=== PATIENT | male | born 1960 | race Caucasian/White ===

== ENCOUNTER 2017-01-10 11:49 | Emergency (ER) | payer MEDICAID, OTHER ==
[~2017-01-10] VITALS: Ht 180.3 cm; Wt 80.9 kg
[2017-01-10 11:53] VITALS: BP 156/110; PULSE 113; RESP 16; O2SAT 99
--- NOTE | 2017-01-10 12:31 | ED.REPORT ---
HPI-General Illness Date of Service Jan 10, 2017 ED Provider: Nicho Puente DO Patient is a 56 year old male with a hx of DM, CAD, and HTN who presents to the ED with multiple medical complaints. he complains of dizzy spells and SOB upon standing, tightness in his R calf that radiates to his groin, a new lump in his right groin (which was the site of a heart cath 6 years ago), numbness in his fingers and toes, his toenails falling off, homelessness, and noncompliance with his diabetes and heart medications. He denies fevers, vomiting, chest pain, or any other symptoms. Nursing Notes Stated Complaint: HEART STENT IN GROIN/PAIN Chief Complaint: General Complaint Nursing Notes Reviewed: Yes Allergies: Coded Allergies: No Known Allergies (Unverified , 01/10/17) General Time Seen by MD: 12:30 Chief Complaint Multip medical complaints Hx Obtained From: Patient Arrived By: Walk-in Onset Occurred: Onset unknown Past Medical History Past Medical History Reports: Coronary artery disease, Diabetes mellitus, Hypertension Past Surgical History CABGx5 groin stents Social History Other Social History: Homeless Ambulatory Status Independent Review of Systems +toenails falling off Full Review of Systems Constitutional: Denies: Fever Respiratory: Reports: Shortness of breath Cardiovascular: Denies: Chest pain GI: Denies: Vomiting Musculoskeletal: Reports: Extremity pain Neurologic: Reports: Dizziness, Numbness Complete sys rev & neg: except as marked. Physical Exam Vital Signs Vital Signs Date Time Temp Pulse Resp B/P Pulse Ox O2 Delivery O2 Flow Rate FiO2 01/10/17 14:20 97 15 168/109 97 Room Air 01/10/17 11:53 36.9 113 16 156/110 99 Room Air Initial VS: Reviewed, Vital signs abnormal Head / Eyes: Atraumatic, Normocephalic Neck: Full range of motion Respiratory: Breath sounds normal, Clear to auscultation, No respiratory distress Skin: Warm, Dry Neurologic: Alert, Oriented, Nonfocal Psychiatric: Mood/affect normal, Behavior normal, Normal thought content General/Constitutional: Awake, Alert Abdomen: Atraumatic, Soft, No hernia Ankle / Foot: Neurologic intact, Vascular intact Swollen, erythematous R great toe with cellulitis tracking proximally up R foot. Interpretation & Diagnostics Lab Results Interpretation Result Diagram: 01/10/17 1250 01/10/17 1250 Test 01/10/17 12:50 01/10/17 14:05 White Blood Count 15.2th/mm3 (3.8-10.1) Red Blood Count 5.04mil/mm3 (4.40-5.80) Hemoglobin 15.8g/dL (13.8-17.2) Hematocrit 45.5% (41.0-50.0) Mean Corpuscular Volume 90.3fL (81-100) Mean Corpuscular Hemoglobin 31.3pg (27.0-35.0) Mean Corpuscular Hemoglobin Concent 34.7% (32.0-37.0) Red Cell Distribution Width 12.6% (12.3-15.4) Platelet Count 152bil/L (150-400) Neutrophils (%) (Auto) 82.5% (40-74) Lymphocytes (%) (Auto) 8.4% (14-46) Monocytes (%) (Auto) 8.5% (4-12) Eosinophils (%) (Auto) 0.1% (0-5) Basophils (%) (Auto) 0.3% (0-3) Erythrocyte Sedimentation Rate 12mm/hr (0-30) Prothrombin Time 11.7sec (8.1-12.5) Prothromb Time International Ratio 1.09ratio D-Dimer < 0.50mg/L FEU (<0.50) Sodium Level 132mEq/L (134-144) Potassium Level 4.1mEq/L (3.5-5.2) Chloride Level 91mEq/L (97-108) Carbon Dioxide Level 23mmol/L (18-29) Blood Urea Nitrogen 11mg/dL (6-24) Creatinine 0.82mg/dL (0.76-1.27) Estimat Glomerular Filtration Rate 104mL/min (>59) Glucose Level 292mg/dL (60-99) Lactic Acid Level 2.0mmol/L (0.4-2.0) Calcium Level 9.3mg/dL (8.5-10.1) Magnesium Level 1.9mg/dL (1.6-2.6) Total Bilirubin 1.3mg/dL (0.0-1.2) Aspartate Amino Transf (AST/SGOT) 23U/L (0-50) Alanine Aminotransferase (ALT/SGPT) 34U/L (0-44) Alkaline Phosphatase 91U/L (25-150) Troponin T < 0.010ug/L (0.0-0.011) C-Reactive Protein 14.8mg/dL (0.0-0.5) Total Protein 8.1g/dL (6.4-8.4) Albumin 3.7g/dL (3.4-5.0) Urine Color Yellow (YELLOW) Urine Appearance Clear (CLEAR,HAZY) Urine pH 6.5 (5.0-8.0) Urine Specific [place] 1.015 (1.003-1.035) Urine Protein Negativemg/dL (NEG,TRACE) Urine Glucose (UA) 1000mg/dL (NEGATIVE) Urine Ketones 40mg/dL (NEGATIVE) Urine Occult Blood Trace (NEGATIVE) Urine Nitrite Negative (NEGATIVE) Urine Bilirubin Negative (NEGATIVE) Urine Urobilinogen 8.0mg/dL (NORMAL) Urine Leukocyte Esterase Negative (NEGATIVE) Urine RBC 3-10/hpf (0-2) Urine WBC 0-5/hpf (0-5) Urine Epithelial Cells Occasional/hpf (NONE-MOD) Urine Crystals None seen (NONE SEEN) Urine Bacteria None/hpf (NONE-FEW) Urine Hyaline Casts None/lpf (NONE) Urine Granular Casts None seen (NONE SEEN) Urine Waxy Casts None seen (NONE SEEN) Urine Red Blood Cell Casts None seen (NONE SEEN) Urine White Blood Cell Casts None seen (NONE SEEN) Urine Mucus None seen (None Seen) Urine Trichomonas None seen (NONE SEEN) Urine Yeast None (NONE SEEN) Urinalysis Comment None Urine Culture Reflexed Not indicated ECG Interpretation ECG Interpretation: Sinus rate 99 No ischemia Time: 13:17 Interpreted by: ED physician X-Ray Chest Interpretation Chest Xray Interpretation: IMPRESSION: No acute disease. Dictated by: Jb Mcguire M.D. on 01/10/2017 at 12:57 Approved by: Jb Mcguire M.D. on 01/10/2017 at 12:58 View: Portable, 1 view Interpretation / Wet Read by: Interpret - Radiologist X-Ray Interpretation Xray Interpretation: IMPRESSION: Plantar calcaneal spur. Forefoot joint degeneration as above No focal osseous destruction to suggest advanced osteomyelitis. Dictated by: Jb Mcguire M.D. on 01/10/2017 at 14:26 Approved by: Jb Mcguire M.D. on 01/10/2017 at 14:31 X-Ray Ordered: Foot right Interpretation / Wet Read by: Interpret - Radiologist Re-Eval/Medical Decision Med Decision/Clinical Course Sepsis due to a diabetic foot wound and cellulitis, additionally noncompliance and homelessness. This patient should be admitted for stabilization with IV antibiotics. Consultation : Call Returned at: 15:50 Note: Shailesh Cardenas, at [facility], accepts transfer Discharge & Departure Primary Impression: Non compliance with medical treatment Additional Impressions: Diabetic foot infection Sepsis Sepsis type: sepsis due to unspecified organism Qualified Code: A41.9 - Sepsis, unspecified organism Disposition: Transfer, Acute Care Facility ([facility]) Transfer Accepted at: 15:50 Spoke with: Attending physician, Hospitalist Patient Status: Stable Patient Informed: Yes Referrals: Chema Mckeon MD (Family) Nessa Attestation Portions of this note were transcribed by Zeeshan Lopez. I, Dr. Puente personally performed the history, physical exam and medical decision-making; I reviewed and confirmed the accuracy of the information in the transcribed note. Signed by: Nessa Harry, 01/10/17 copies to: Chema Mckeon MD, Timothy S DO Jan 10, 2017 12:31 ZEESHAN LOPEZ Jan 10, 2017 12:39
--- NOTE | 2017-01-10 12:59 | DRSVH ---
PROCEDURE: X-RAY CHEST ONE VIEW, PORTABLE ([id number]) INDICATIONS: shortness of breath TECHNIQUE: One view of the chest was acquired. COMPARISON: None. FINDINGS: Surgical changes and devices: Sternotomy wires and CABG clips. Lungs and pleura: No pleural effusions or pneumothorax. Lungs are clear. Mediastinum: Mediastinal contours appear normal. Heart size is normal. Bones and chest wall: No suspicious bony lesions. Overlying soft tissues appear unremarkable. IMPRESSION: No acute disease. Dictated by: Jb Mcguire M.D. on 01/10/2017 at 12:57 Approved by: Jb Mcguire M.D. on 01/10/2017 at 12:58
[2017-01-10 13:05] LABS: BASOPHILS % (AUTO) 0.3 % (0-3); EOSINOPHILS % (AUTO) 0.1 % (0-5); MONOCYTES % (AUTO) 8.5 % (4-12); Mean Corpuscular Hemoglobin 31.3 pg (27.0-35.0); Mean Corpuscular Volume 90.3 fL (81-100); NEUTROPHILS % (AUTO) 82.5 % (40-74); Platelet Count 152 bil/L (150-400)
[2017-01-10] MEDS ORDERED: 0.9% Sodium Chloride 1,000 ML IV ONE (13:08)
[2017-01-10 13:17] LABS: INR 1.09 ratio
[2017-01-10 13:38] LABS: TROPONIN T < 0.010 ug/L (0.0-0.011)
[2017-01-10] MEDS ORDERED: Piperacillin-Tazo 3.375 Gm Inj 3.375 GM in Dextrose 5% Minibag Plus 50 ML IV ONE (13:40)
[2017-01-10] MEDS ORDERED: Vancomycin Dose per Pharmacist XX ONE (13:47)
[2017-01-10] MEDS ORDERED: Vancomycin Inj 1,500 MG in 0.9% Sodium Chloride 500 ML IV ONE (13:50)
[2017-01-10 14:20] VITALS: BP 168/109; PULSE 97; RESP 15; O2SAT 97
[2017-01-10 14:33] LABS: APPEARANCE,URINE CLEAR (CLEAR,HAZY); COLOR,URINE YELLOW (YELLOW); OCCULT BLOOD,URINE TRACE (NEGATIVE); PH,URINE 6.5 (5.0-8.0)
--- NOTE | 2017-01-10 14:33 | DRSVH ---
PROCEDURE: X-RAY RIGHT FOOT COMPLETE, MINIMUM THREE VIEWS ([id number]) INDICATIONS: 1st toe infection TECHNIQUE: 3 views of the foot were acquired. COMPARISON: None. FINDINGS: Bones: No fractures or dislocations. No suspicious bony lesions. Plantar calcaneal spurring. There is diffuse interphalangeal and first MTP joint degeneration. No focal osseous destruction is seen. Soft tissues: No tibiotalar joint effusion. Achilles tendon appears normal. IMPRESSION: Plantar calcaneal spur. Forefoot joint degeneration as above No focal osseous destruction to suggest advanced osteomyelitis. Dictated by: Jb Mcguire M.D. on 01/10/2017 at 14:26 Approved by: Jb Mcguire M.D. on 01/10/2017 at 14:31
[2017-01-10 16:44] VITALS: BP 171/108; PULSE 95; RESP 13; O2SAT 98
[2017-01-10] MEDS ORDERED: Insulin Human REGular-Omnicell 100 Unit/mL SUBQ ONE (16:50)
[2017-01-10] MEDS ORDERED: 0.9% Sodium Chloride 1,000 ML IV SCH (16:50)
== END 2017-01-10 18:00 | disposition short-term general hospital (02) ==
LOC: SED 11:49
DX: Z91.14 Patient's other noncompliance with medication regimen (principal); E11.628 Type 2 diabetes mellitus with other skin complications; A41.9 Sepsis, unspecified organism; I25.10 Atherosclerotic heart disease of native coronary artery without angina pectoris; I10 Essential (primary) hypertension; Z59.0 Homelessness; Z95.1 Presence of aortocoronary bypass graft
CPT/HCPCS: 36415; 71010; 73630; 80053; 81000; 82948; 83605; 83735; 84484; 85025; 85378; 85610; 85651; 86140; 87040; 87077; 93005; 96361; 96365; 96366; 96367; 96372; 99285; J1815; J2543; J3370; J7030; J7040

== ENCOUNTER 2017-03-08 16:49 | Emergency (ER) | payer OTHER ==
[~2017-03-08] VITALS: Ht 177.8 cm; Wt 81.8 kg
[2017-03-08 16:55] VITALS: BP 135/90; PULSE 104; RESP 16; O2SAT 97
--- NOTE | 2017-03-08 18:20 | ED.REPORT ---
HPI-Extremity Problem Lower Date of Service Mar 08, 2017 ED Provider: Moustapha Kelley DO Pt is a homeless 56 year old male with a history of DM, HTN, and CAD who presents to the ED complaining of right greater toe post-amputation site pain. He c/o associated right foot swelling, erythema, and discharge. The pt presented to the ED on 01/10/17 with multiple complaints including numbness in his finger and toes secondary to noncompliance with his diabetes and heart medications. Pt was diagnosed with non compliance of medical treatment, diabetic foot infection, and sepsis. He was transferred to [facility] where his right greater toe was evidently amputated on 01/12/17. Nursing Notes Stated Complaint: AMPUTATED TOE POSS INFECTION Chief Complaint: Extremity Trauma Nursing Notes Reviewed: Yes Allergies: Coded Allergies: No Known Allergies (Unverified , 03/08/17) No Active Prescriptions or Reported Meds General Time Seen by MD: 18:18 Chief Complaint Other (Pright greater toe post-amputation pain) Hx Obtained From: Patient Arrived By: Walk-in Onset Occurred: Onset unknown Symptom Duration: Since onset Location: : Toe right 1 Quality: Painful Severity: Current: Moderate Severity: Maximum: Moderate Recent Healthcare: Recent doctor visit, Recent hospitalization Similar Sx Previous: No Past Medical History Past Medical History Reports: Coronary artery disease, Diabetes mellitus, Hypertension Past Surgical History CABGx5 groin stents Right greater toe amputation Smoking History Never Smoker Social History Alcohol Use: "Social" Drug Use: Denies drug use Other Social History: Homeless Ambulatory Status Independent Review of Systems + right greater toe amputation site pain + right foot swelling + right greater toe amputation site drainage + right foot erythema Complete sys rev & neg: except as marked. Physical Exam Initial Vital Signs Vital Signs (First) Date Time Temp Pulse Resp B/P Pulse Ox O2 Delivery O2 Flow Rate FiO2 03/08/17 16:55 37.1 104 16 135/90 97 Room Air Initial VS: Reviewed Head / Eyes: Atraumatic, Normocephalic Neck: Supple, Full range of motion Respiratory: Breath sounds normal, Clear to auscultation, No respiratory distress Cardiovascular: Regular rate & rhythm, Heart sounds normal, Intact distal pulses Upper Extremities: Vascular intact, Neuro intact Skin: Warm, Dry, No cyanosis Neurologic: Alert, Oriented, Nonfocal Psychiatric: Mood/affect normal, Behavior normal Lower Extremity / Pelvis / MS: Atraumatic, Full range of motion Ankle / Foot: Full range of motion He has an amputated right foot greater toe with purulent discharge. It is erythematous and tender. There is no palpable gas. Brisk capillary refill. There is right foot edema. General/Constitutional: Awake, Alert Interpretation & Diagnostics Lab Results Interpretation Result Diagram: 03/08/17191603/08/171916 Test 03/08/17 19:17 03/08/17 19:18 White Blood Count 6.8th/mm3 (3.8-10.1) Red Blood Count 4.36mil/mm3 (4.40-5.80) Hemoglobin 13.2g/dL (13.8-17.2) Hematocrit 39.0% (41.0-50.0) Mean Corpuscular Volume 89.4fL (81-100) Mean Corpuscular Hemoglobin 30.3pg (27.0-35.0) Mean Corpuscular Hemoglobin Concent 33.8% (32.0-37.0) Red Cell Distribution Width 14.2% (12.3-15.4) Platelet Count 134bil/L (150-400) Neutrophils (%) (Auto) 63.4% (40-74) Lymphocytes (%) (Auto) 23.1% (14-46) Monocytes (%) (Auto) 11.6% (4-12) Eosinophils (%) (Auto) 1.5% (0-5) Basophils (%) (Auto) 0.3% (0-3) Sodium Level 139mEq/L (134-144) Potassium Level 4.3mEq/L (3.5-5.2) Chloride Level 101mEq/L (97-108) Carbon Dioxide Level 25mmol/L (18-29) Blood Urea Nitrogen 22mg/dL (6-24) Creatinine 0.84mg/dL (0.76-1.27) Estimat Glomerular Filtration Rate 101mL/min (>59) Glucose Level 95mg/dL (60-99) Calcium Level 8.9mg/dL (8.5-10.1) Total Bilirubin 0.4mg/dL (0.0-1.2) Aspartate Amino Transf (AST/SGOT) 30U/L (0-50) Alanine Aminotransferase (ALT/SGPT) 16U/L (0-44) Alkaline Phosphatase 50U/L (25-150) C-Reactive Protein 0.5mg/dL (0.0-0.5) Total Protein 7.3g/dL (6.4-8.4) Albumin 3.9g/dL (3.4-5.0) Hold Velasco Top Tube Received (Received) X-Ray Interpretation Xray Interpretation: IMPRESSION: Postoperative changes as above. Dictated by: Leena Shankar M.D. on 03/08/2017 at 19:48 Study Performed: Minimum 3 views X-Ray Ordered: Foot right Interpretation / Wet Read by: Interpret - Radiologist Re-Eval/Medical Decision Med Decision/Clinical Course Mild and superficial infection. Scant amount of pus at the tip of his toe. Foot was a bit erythematous however after he elevated it mostly erythema was gone. Laboratory work reassuring. We will place him on a course of antibiotics and have him see his table worker packager tomorrow. IV antibiotics were infused in the emergency department. Source of Hx: Old records Re-Evaluation/Progress #1: Time of Eval: 18:31 Re-Evaluation/Progress Note: Informed pt of plan for IV, labs, and treatment with antibiotics. The pt was also informed of plan for an x-ray to determine if there is gas present in his right foot. Pt understands and agrees with plan. All questions addressed. Re-Evaluation/Progress #2: Time of Eval: 20:05 Re-Evaluation/Progress Note: Pt rechecked. Informed that his x-ray was reassuring, labs were normal without indication of sepsis. Will discharge and treat with oral antibiotics. Pt understands and agrees with plan for discharge. F/U instructions and RTER warnings given. All questions addressed. Counseled Regarding: Diagnosis, Lab results, Need for follow-up, When/why to return to ED Discharge & Departure Impression: Primary Impression: Post op infection Disposition: Home Discharge Condition All VS Reviewed: Yes Condition: Stable Patient Instructions: Wound Infection (ED) Additional Instructions: Take Bactrim 2x daily for 7 days. Take Augmentin 2x daily for 7 days. Acetaminophen 1 every 8 hours as needed for pain. Max 4g a day. Keep your foot elevated. Keep your wound clean and dry. Call your table worker packager tomorrow for a follow up appointment this week. Return to the Emergency Department for any new or concerning symptoms. Referrals: OTHER,PHYSICIAN Berthaibsejal Attestation Portions of this note were transcribed by Christina Dunne. I, Dr. Kelley personally performed the history, physical exam and medical decision-making; I reviewed and confirmed the accuracy of the information in the transcribed note. Signed by : Nessa Baxter, 03/07/17. copies to: PHYSICIAN Allie MORALES Todd P DO Mar 08, 2017 18:19 Christina Valle Mar 08, 2017 18:37
[2017-03-08] MEDS ORDERED: Piperacillin-Tazo 3.375 Gm Inj 3.375 GM in Dextrose 5% Minibag Plus 50 ML IV ONE (18:35)
[2017-03-08 19:28] LABS: BASOPHILS % (AUTO) 0.3 % (0-3); EOSINOPHILS % (AUTO) 1.5 % (0-5); MONOCYTES % (AUTO) 11.6 % (4-12); Mean Corpuscular Hemoglobin 30.3 pg (27.0-35.0); Mean Corpuscular Volume 89.4 fL (81-100); NEUTROPHILS % (AUTO) 63.4 % (40-74); Platelet Count 134 bil/L (150-400)
--- NOTE | 2017-03-08 19:51 | DRSVH ---
PROCEDURE: X-RAY RIGHT FOOT COMPLETE, MINIMUM THREE VIEWS ([id number]) INDICATIONS: post op amputation foot infection TECHNIQUE: 3 views of the foot were acquired. COMPARISON: [facility], CR, XR FOOT 3VW RT, 01/10/2017, 13:55. FINDINGS: Bones: Interval since the prior exam, there is been amputation of the bursa proximal and distal phala nx. Surrounding soft tissue edema is noted. Soft tissues: No tibiotalar joint effusion. Achilles tendon appears normal. IMPRESSION: Postoperative changes as above. Dictated by: Leena Shankar M.D. on 03/08/2017 at 19:48 Approved by: Leena Shankar M.D. on 03/08/2017 at 19:49
[2017-03-08 20:32] VITALS: BP 162/85; PULSE 94; RESP 16; O2SAT 97
== END 2017-03-08 20:34 | disposition home or self-care (01) ==
LOC: SED 16:49
DX: T87.43 Infection of amputation stump, right lower extremity (principal); Y83.5 Amputation of limb(s) as the cause of abnormal reaction of the patient, or of later complication, without mention of misadventure at the time of the procedure; Y93.89 Activity, other specified; Y99.8 Other external cause status; Y92.89 Other specified places as the place of occurrence of the external cause; E11.9 Type 2 diabetes mellitus without complications; I10 Essential (primary) hypertension; I25.10 Atherosclerotic heart disease of native coronary artery without angina pectoris; Z89.411 Acquired absence of right great toe; Z95.1 Presence of aortocoronary bypass graft; Z59.0 Homelessness
CPT/HCPCS: 36415; 73630; 80053; 85025; 86140; 87040; 96365; 99284; J2543